=== PATIENT | female | born 1990 | race Hispanic/Latino ===

== ENCOUNTER 2023-11-15 14:25 | Outpatient (CLI) | payer OTHER | END 2023-11-15 14:26 | disposition home or self-care (01) | LOC: CSHULT 14:25 | PROVIDERS: ATTEND Advanced Practice Midwife | DX: Z34.92 Encounter for supervision of normal pregnancy, unspecified, second trimester (principal); Z3A.22 22 weeks gestation of pregnancy | CPT/HCPCS: 76805 ==

== ENCOUNTER 2024-03-11 18:00 | Inpatient (IN) | payer OTHER ==
[2024-03-11 21:19] VITALS: BMI 26.9
[2024-03-11] MEDS ORDERED: Lidocaine 1% (PF) 30 ML VIAL SC PRN (22:50)
[2024-03-11] MEDS ORDERED: Ondansetron PF 4 MG/2 ML Vial IVP PRN (22:50)
[2024-03-11] MEDS ORDERED: hydrALAZINE 20 MG/ML VIAL SLOW IVP PRN (22:50)
[2024-03-11] MEDS ORDERED: Promethazine HCl 25 MG/ML VIAL IM PRN (22:50)
[2024-03-11] MEDS ORDERED: Tranexamic Acid 1,000 MG/10 ML VIAL IVP PRN (22:51)
[2024-03-11] MEDS ORDERED: Acetaminophen 500 MG TAB PO PRN (22:51)
[2024-03-11] MEDS ORDERED: Ibuprofen 800 MG TAB PO PRN (22:51)
[2024-03-11] MEDS ORDERED: Carboprost 250 MCG/ML AMP IM PRN (22:51)
[2024-03-11] MEDS ORDERED: Misoprostol 200 MCG TAB PR PRN (22:51)
[2024-03-11] MEDS ORDERED: Docusate 100 MG CAP PO PRN (22:51)
[2024-03-11] MEDS ORDERED: Methylergonovine 0.2 MG/ML VIAL IM PRN (22:51)
[2024-03-11] MEDS ORDERED: Oxytocin 30 units/NS 500 ML 500 ML IV SCH (23:00)
[2024-03-11 23:04] LABS: Hematocrit 36.6 % (34.9-44.5); Hemoglobin 12.6 g/dL (12.0-15.5); Mean Corpuscular HGB CONC 34.4 g/dL (32.0-36.0); Mean Corpuscular Hemoglobin 30.8 pg (27.0-33.0); Mean Corpuscular Volume 89.5 fL (81.6-98.3); Mean Platelet Volume 12.7 fL (7.4-10.4); Platelet Count 205 10x3/uL (150-450); RBC Distribution Width 13.7 % (11.5-14.5); Red Blood Cell (RBC) Count 4.09 10x6/uL (3.90-5.03); White Blood Cell (WBC) Count 10.24 10x3/uL (3.5-10.5)
[2024-03-11] MEDS: Oxytocin 30 units/NS 500 ML 500 ML IV SCH (23:11)
[2024-03-11 23:45] LABS: Syphilis Antibody Nonreactive (Nonreactive); Syphilis Antibody Index 0.04 S/CO (<1.00 Non-Reactive)
[2024-03-11 23:47] LABS: HBsAg Index 0.18 S/CO (0-0.99); Hep B Surf Ag - L&D Non-Reactive S/CO (NonReactive)
[2024-03-12] MEDS: fentaNYL/Ropivacaine Epidural 100 ML ONE (04:08)
[2024-03-12] MEDS ORDERED: Lactated Ringer's 500 ML IV PRN (04:17)
[2024-03-12] MEDS ORDERED: Promethazine HCl 25 MG/ML VIAL IM PRN (04:17)
[2024-03-12] MEDS ORDERED: diphenhydrAMINE 50 MG/ML VIAL IVP PRN (04:17)
[2024-03-12] MEDS ORDERED: Moisturizing Cream (Eucerin) 113 GM JAR TOP PRN (04:17)
[2024-03-12] MEDS ORDERED: ePHEDrine Sulfate 50 MG/10 ML VIAL SLOW IVP PRN (04:17)
[2024-03-12] MEDS ORDERED: Naloxone HCl 0.4 mg/ml Vial IVP PRN ×2 (04:17)
[2024-03-12] MEDS ORDERED: Ondansetron PF 4 MG/2 ML Vial IVP PRN (04:17)
[2024-03-12] MEDS ORDERED: Acetaminophen 325 MG TAB PO PRN (04:17)
[2024-03-12] MEDS ORDERED: Communication Order-Pharmacy FS SCH (04:30)
[2024-03-12] MEDS ORDERED: fentaNYL 2 mcg/Ropivacaine 0.2% Epidural 100 ML CADD EPIDURAL SCH (04:30)
[2024-03-12] MEDS ORDERED: Ferrous Sulfate 325 MG TAB PO SCH (08:00)
[2024-03-12] MEDS ORDERED: Prenatal Vitamin 1 TAB PO SCH (09:00)
[2024-03-12] MEDS ORDERED: Aspirin 81 mg Enteric Coated Tablet PO SCH (09:00)
[2024-03-12] MEDS ORDERED: Preparation H Ointment 28 GM TUBE PR PRN (11:32)
[2024-03-12] MEDS ORDERED: Bisacodyl 10 MG SUPP PR PRN (11:32)
[2024-03-12] MEDS ORDERED: Milk Of Magnesia 30 ML UDCUP PO PRN (11:32)
[2024-03-12] MEDS ORDERED: hydrALAZINE 20 MG/ML VIAL SLOW IVP PRN (11:32)
[2024-03-12] MEDS ORDERED: Benzocaine-Menthol 82.5 ML CAN TOP PRN (11:32)
[2024-03-12] MEDS ORDERED: Lanolin Ointment 7 GM TUBE TOP PRN (11:32)
[2024-03-12] MEDS: Ferrous Sulfate 325 MG TAB PO SCH (15:09)
[2024-03-12] MEDS: Boostrix 0.5 ML (Tdap) VIAL (>/=7 yrs of age) IM ONE (15:09)
[2024-03-12] MEDS: Dexmedetomidine 200 MCG/2 ML VIAL ONE (15:09)
[2024-03-12] MEDS: Ibuprofen 800 MG TAB PO SCH (15:28)
[2024-03-12] MEDS: Acetaminophen 325 MG TAB PO PRN (16:50)
[2024-03-12] MEDS ORDERED: Bupivacaine/Epinephrine 0.25% 30 ML VIAL ONE (19:26)
[2024-03-12] MEDS ORDERED: ePHEDrine Sulfate 50 MG/10 ML VIAL ONE (19:26)
[2024-03-12] MEDS: Docusate 100 MG CAP PO SCH (21:41)
[2024-03-13] MEDS: Acetaminophen 500 MG TAB PO SCH (07:58)
[2024-03-14 07:44] VITALS: BP 106/58; TEMP 98.4
== END 2024-03-14 14:40 | disposition home or self-care (01) | DRG 807 ==
LOC: CSHLD 20:52 → CSHPP 03-12 14:29
PROVIDERS: ADMIT Family Medicine; ATTEND Family Medicine
PROC: 10E0XZZ Delivery of Products of Conception, External Approach (ICD-10-PCS; principal; 2024-03-11)
PROC: 3E033VJ Introduction of Other Hormone into Peripheral Vein, Percutaneous Approach (ICD-10-PCS; 2024-03-11)
PROC: 10907ZC Drainage of Amniotic Fluid, Therapeutic from Products of Conception, Via Natural or Artificial Opening (ICD-10-PCS; 2024-03-11)
PROC: 0HQ9XZZ Repair Perineum Skin, External Approach (ICD-10-PCS; 2024-03-11)
DX: O99.02 Anemia complicating childbirth (principal); Z37.0 Single live birth; O70.0 First degree perineal laceration during delivery; Z3A.39 39 weeks gestation of pregnancy
CPT/HCPCS: 36415; 51702; 85027; 86780; 86850; 86900; 86901; 87340; J2590